=== PATIENT | male | born 1960 | race Caucasian/White ===

== ENCOUNTER 2023-01-16 15:00 | Outpatient (CLI) | payer BC | END 2023-01-16 15:01 | disposition home or self-care (01) | LOC: CSHLAB 15:00 | PROVIDERS: ATTEND Otolaryngology Otolaryngic Allergy | DX: Z01.818 Encounter for other preprocedural examination (principal); J30.9 Allergic rhinitis, unspecified; J34.2 Deviated nasal septum; J34.3 Hypertrophy of nasal turbinates; G47.33 Obstructive sleep apnea (adult) (pediatric) | CPT/HCPCS: 93005; 93010 ==

== ENCOUNTER 2023-01-21 06:52 | Observation (INO) | payer BC ==
[2023-01-16 16:08] VITALS: BMI 29.3
[2023-01-21] MEDS ORDERED: Oxymetazoline HCl 0.05% ( 15 ML ) ONE ×2 (07:49→09:02)
[2023-01-21] MEDS ORDERED: Rocuronium Bromide 10 MG/ML (10ML VIAL) ONE (08:31)
[2023-01-21] MEDS ORDERED: Midazolam HCl 2 mg/2 ml Vial ONE (08:31)
[2023-01-21] MEDS ORDERED: Lidocaine 1% PF 5 ML VIAL ONE (08:31)
[2023-01-21] MEDS ORDERED: Ondansetron PF 4 MG/2 ML Vial ONE (08:31)
[2023-01-21] MEDS ORDERED: PROPOFOL 40 ML ONE (08:31)
[2023-01-21] MEDS ORDERED: fentaNYL 50 mcg/mL 1 mL Vial ONE (08:31)
[2023-01-21] MEDS ORDERED: Dexamethasone 20 MG/5 ML VIAL ONE (08:31)
[2023-01-21] MEDS ORDERED: Lidocaine 1% w/Epinephrine 1:100K 20 ML VIAL ONE (09:01)
[2023-01-21] MEDS ORDERED: Mupirocin 2% Ointment 22 GM Tube ONE (09:02)
[2023-01-21] MEDS ORDERED: SUGAMMADEX SODIUM 200 MG/2 ML VIAL ONE (09:06)
[2023-01-21] MEDS ORDERED: Lidocaine 4% Topical Sol 50 ML BOT ONE (09:06)
[2023-01-21] MEDS ORDERED: CEFAZOLIN 1 GM VIAL ONE (09:22)
[2023-01-21] MEDS ORDERED: ePHEDrine Sulfate 50 MG/10 ML VIAL ONE (09:36)
[2023-01-21] MEDS ORDERED: Ondansetron PF 4 MG/2 ML Vial IVP PRN (10:29)
[2023-01-21] MEDS ORDERED: Ondansetron ODT 4 MG TAB PO PRN (10:29)
[2023-01-21] MEDS ORDERED: Acetaminophen 325 MG TAB PO PRN (10:29)
[2023-01-21] MEDS ORDERED: Oxymetazoline HCl 0.05% ( 15 ML ) NASAL PRN (10:32)
[2023-01-21] MEDS ORDERED: Acetaminophen/Codeine 30-300mg Tablet PO PRN (10:33)
[2023-01-21] MEDS: Acetaminophen/Codeine 30-300mg Tablet PO PRN ×2 (13:31→20:40)
[2023-01-21] MEDS: Sodium Chloride 0.65% Nasal 44 ML BOT EA NARE SCH ×3 (13:38→20:39)
[2023-01-22] MEDS: Acetaminophen/Codeine 30-300mg Tablet PO PRN ×2 (01:04→08:16)
[2023-01-22 08:16] VITALS: BP 125/82; TEMP 98.1
[2023-01-22] MEDS: Sodium Chloride 0.65% Nasal 44 ML BOT EA NARE SCH (08:18)
== END 2023-01-22 09:50 | disposition home or self-care (01) ==
LOC: CSHSDC 06:52 → CSHTELE 12:15
PROVIDERS: ADMIT Otolaryngology Otolaryngic Allergy; ATTEND Otolaryngology Otolaryngic Allergy
PROC: 05H Upper Veins, Insertion (ICD-10-PCS; principal; 2023-01-21)
PROC: 0JH80MZ Insertion of Stimulator Generator into Abdomen Subcutaneous Tissue and Fascia, Open Approach (ICD-10-PCS; 2023-01-21)
PROC: 02Q Heart and Great Vessels, Repair (ICD-10-PCS; 2023-01-21)
DX: J34.2 Deviated nasal septum (principal); J34.3 Hypertrophy of nasal turbinates; J30.9 Allergic rhinitis, unspecified; G47.33 Obstructive sleep apnea (adult) (pediatric); Z87.891 Personal history of nicotine dependence
CPT/HCPCS: 94762; J0690; J1100; J2250; J2405; J2704; J3010